=== PATIENT | male | born 2000 | race African-American/Black ===

== ENCOUNTER 2021-02-16 14:08 | Emergency (ER) | payer OTHER, SELFPAY ==
[2021-02-16] MEDS ORDERED: LIDOCAINE 1% 20 ML MDV ONE (14:51)
[2021-02-16] MEDS ORDERED: BUPIVACAINE 0.5% PF 10 ML VIAL ONE (14:55)
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
[2021-02-16 15:54] VITALS: BP 129/86; O2SAT 100
[2021-02-16 15:55] VITALS: TEMP 97.7
== END 2021-02-16 15:41 | disposition home or self-care (01) ==
LOC: ER 14:08
DX: S00.431A Contusion of right ear, initial encounter (principal)
CPT/HCPCS: 99283

== ENCOUNTER 2021-02-26 08:55 | Emergency (ER) | payer OTHER ==
--- NOTE | 2021-02-26 09:11 | EDPHYS ---
Physician Documentation [facility] Name: Familia Kent Age: 20 yrs Sex: Male : 2000 Arrival Date: 02/26/2021 Time: 08:59 Bed 6 Private MD: ED Physician Josr Valentin HPI: 02/26 09:14 This 20 yrs old Black Male presents to ER via Ambulatory with complaints of Ear kb swelling. 09:14 The patient presents with swelling. The complaints affect the right ear. Onset: The kb symptoms/episode began/occurred 2 week(s) ago. Modifying factors: The symptoms are alleviated by nothing, the symptoms are aggravated by pressure. Associated signs and symptoms: The patient has no apparent associated signs or symptoms. Severity of symptoms: At their worst the symptoms were moderate in the emergency department the symptoms are unchanged. The patient has not experienced similar symptoms in the past. The patient has not recently seen a physician. Pt reports swelling to right ear that started 2 weeks ago. States he came here when it first started and it was drained, but it filled back up after a day. States it was full of blood. Came back today to get it drained again. Denies pain. States it is uncomfortable when he rolls onto it while sleeping. . Historical: - Allergies: 09:10 No Known Allergies; ch5 - Immunization history:: Adult Immunizations unknown, . - Social history:: Smoking status: Patient denies any tobacco usage or history of. ROS: 09:13 Constitutional: Negative for fever, chills, and weight loss. kb 09:13 ENT: Positive for swelling to right ear. 09:13 All other systems are negative. Exam: 09:13 Constitutional: This is a well developed, well nourished patient who is awake, alert, kb and in no acute distress. Head/Face: Normocephalic, atraumatic. Respiratory: Respirations even and unlabored. No increased work of breathing, no retractions or nasal flaring. Skin: Warm, dry with normal turgor. Normal color. MS/ Extremity: Pulses equal, no cyanosis. Neurovascular intact. Full, normal range of motion. Neuro: Awake and alert, GCS 15, oriented to person, place, time, and situation. Moves all extremities. Normal gait. Psych: Awake, alert, with orientation to person, place and time. Behavior, mood, and affect are within normal limits. 09:13 ENT: External ear(s): swelling, that is moderate, on the pinna of right ear, TM's: are normal. Vital Signs: 09:08 BP 119 / 65; Pulse 53; Resp 18; Temp 98; Pulse Ox 100% ; Weight 76.66 kg; Height 5 ft. ch5 11 in. (180.34 cm); 09:08 Body Mass Index 23.57 (76.66 kg, 180.34 cm) ch5 MDM: 09:02 Patient medically screened. kb 09:13 Data reviewed: vital signs, nurses notes. Data interpreted: Pulse oximetry: on room air kb is 100 %. Interpretation: normal. Counseling: I had a detailed discussion with the patient and/or guardian regarding: the historical points, exam findings, and any diagnostic results supporting the discharge/admit diagnosis, the need for outpatient follow up, an ENT specialist, to return to the emergency department if symptoms worsen or persist or if there are any questions or concerns that arise at home. ED course: Discussed case with Dr Valentin. Recommends follow up with ENT.. Administered Medications: No medications were administered Disposition: 02/27 08:25 Co-signature as Attending Physician, Josr Valentin MD I agree with the assessment and rn plan of care. Attestation: The patient's history, exam findings, diagnostics, and a summary of any interventions or procedures was reviewed in detail with Analy BUSH. Disposition Summary: 02/26/21 09:10 Discharge Ordered Location: Home kb Condition: Stable kb Diagnosis - Right Ear Hematoma kb Followup: kb - With: Emergency Department - When: As needed - Reason: Worsening of condition Followup: kb - With: Elinor Barajas MD - When: 1 - 2 days - Reason: Recheck today's complaints Discharge Instructions: - Discharge Summary Sheet kb - Hematoma, [id number] kb Forms: - Medication Reconciliation Form kb - Thank You Letter kb - Antibiotic Education kb - Prescription Opioid Use kb - Work release form 5 Signatures: Analy Aguirre FNP-C FNP-Ckb Nieto, Roman, MD MD rn Heath, Christopher, RN RN 5
--- NOTE | 2021-02-26 09:11 | ER ---
Nurse's Notes [facility] Name: Familia Kent Age: 20 yrs Sex: Male : 2000 Arrival Date: 02/26/2021 Time: 08:59 Bed 6 Private MD: Diagnosis: Right Ear Hematoma Presentation: 02/26 09:08 Chief complaint: Patient states: Swelling in right ear. had it drained before but never ch5 followed up with Dr Barajas. Coronavirus screen: Vaccine status: Patient reports receiving the 2nd dose of the covid vaccine. Ebola Screen: Patient negative for fever greater than or equal to 101.5 degrees Fahrenheit, and additional compatible Ebola Virus Disease symptoms Patient denies exposure to infectious person. Patient denies travel to an Ebola-affected area in the 21 days before illness onset. Initial Sepsis Screen: Does the patient meet any 2 criteria? No. Patient's initial sepsis screen is negative. Does the patient have a suspected source of infection? No. Patient's initial sepsis screen is negative. Risk Assessment: Do you want to hurt yourself or someone else? Patient reports no desire to harm self or others. Onset of symptoms is unknown. 09:08 Method Of Arrival: Ambulatory 5 09:08 Acuity: YAS 4 ch5 Triage Assessment: 09:10 General: Appears in no apparent distress. Behavior is calm, cooperative. ch5 Historical: - Allergies: 09:10 No Known Allergies; ch5 - Immunization history:: Adult Immunizations unknown, . - Social history:: Smoking status: Patient denies any tobacco usage or history of. Screenin:10 Abuse screen: Denies threats or abuse. Denies injuries from another. Nutritional 5 screening: No deficits noted. Tuberculosis screening: No symptoms or risk factors identified. Fall Risk None identified. Assessment: 09:10 Reassessment: No changes from previously documented assessment. Patient is alert, ch5 oriented x 3, equal unlabored respirations, skin warm/dry/pink. Pain: Complains of pain in pinna of right ear. EENT:. Vital Signs: 09:08 BP 119 / 65; Pulse 53; Resp 18; Temp 98; Pulse Ox 100% ; Weight 76.66 kg; Height 5 ft. ch5 11 in. (180.34 cm); 09:08 Body Mass Index 23.57 (76.66 kg, 180.34 cm) ch5 ED Course: 08:59 Patient arrived in ED. mr 09:02 Analy Aguirre [facility]-C [facility] kb 09:02 Josr Valentin MD is Attending Physician. kb 09:02 Nicholas Adhikari, RN is Primary Nurse. ch5 09:10 Triage completed. ch5 09:10 Elinor Barajas MD is Referral Physician. kb 09:10 Arm band placed on right wrist. ch5 09:10 Patient has correct armband on for positive identification. Placed in gown. Bed in low ch5 position. 09:10 No provider procedures requiring assistance completed. Patient did not have IV access ch5 during this emergency room visit. Administered Medications: No medications were administered Outcome: 09:10 Discharge ordered by . kb 09:17 Discharged to home ambulatory, with friend. ch5 09:17 Condition: unchanged 09:17 Discharge instructions given to patient. 09:17 Patient left the ED. 5 Signatures: Analy Aguirre FNP-C FNP-Joelle Vyas mr Nicholas Adhikari, RN RN [facility]
[2021-02-26 09:22] VITALS: BP 119/65; TEMP 98; O2SAT 100
== END 2021-02-26 09:17 | disposition home or self-care (01) ==
LOC: ER 08:55
DX: S00.431A Contusion of right ear, initial encounter (principal)
CPT/HCPCS: 99281

== ENCOUNTER 2021-04-10 17:49 | Emergency (ER) | payer OTHER ==
[2021-04-10] MEDS ORDERED: NA CHLORIDE 0.9% 1,000 ML ONE (18:18)
[2021-04-10 18:42] LABS: Absolute Lymphocytes (CBC) 0.9 K/uL (0.7-4.9); Basophils % 0.5 % (0-1.3); Hematocrit 44.2 % (39.6-49.0); Lymphocytes % 14.4 % (15.3-44.8); MPV 9.3 fL (7.6-11.3); RBC Red Blood Cell Count 5.29 M/uL (4.33-5.43)
--- NOTE | 2021-04-10 18:42 | RAD REPORT ---
EXAM DESCRIPTION: CT - Head Brain Wo Cont - 04/10/2021 6:33 pm CLINICAL HISTORY: SYNCOPE COMPARISON: HEAD BRAIN W O CONTRAST dated 12/17/2008 TECHNIQUE: Axial 5 mm thick images of the head were obtained without IV contrast. All CT scans are performed using dose optimization technique as appropriate and may include automated exposure control or mA/KV adjustment according to patient size. FINDINGS: No intracranial hemorrhage, mass, edema or shift of mid-line structures. No acute infarcti on changes seen. No abnormal extra-axial fluid collections. Ventricles are normal. Mastoid air cells and visualized portions of the paranasal sinuses are clear. No acute bony findings. IMPRESSION: Negative non-contrast CT head examination.
[2021-04-10 18:47] LABS: Protime INR 1.29
[2021-04-10 19:19] LABS: Albumin 3.8 g/dL (3.4-5.0); Bilirubin Direct 0.2 mg/dL (0-0.2); Bilirubin Total 0.7 mg/dL (0.2-1.0); Potassium 3.5 mmol/L (3.5-5.1); Protein, Total 7.5 g/dL (6.4-8.2)
[2021-04-10 19:59] LABS: Barbiturates NEGATIVE (NEGATIVE); Benzodiazepines NEGATIVE (NEGATIVE); Cocaine NEGATIVE (NEGATIVE); METHAMPHETAM NEGATIVE (NEGATIVE); Methadone NEGATIVE (NEGATIVE); Opiates NEGATIVE (NEGATIVE); Phencyclidine NEGATIVE (NEGATIVE); THC Cannibis NEGATIVE (NEGATIVE)
[2021-04-10 20:57] LABS: Blood Morphology Comment NOT SEEN (NOT SEEN); Platelet Estimate ADEQ; White Blood Cell Scan OK (OK)
--- NOTE | 2021-04-10 22:22 | ER ---
Nurse's Notes [facility] Name: Familia Kent Age: 20 yrs Sex: Male : 2000 Arrival Date: 04/10/2021 Time: 17:53 Bed 7 Private MD: Diagnosis: Syncope Presentation: 04/10 17:53 Chief complaint: EMS states: "the pt's co-workers called for the patient possibly jd3 having a panic attack. on our arrival the pt was curled up and partially unresponsive and was drooling. after coaching his breathing and the pt calmed down the pt was more responsive and is now reporting a headache and generalized pain all over. 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 Coronavirus screen: At this time, the client does not indicate any symptoms associated with coronavirus-19. Ebola Screen: Patient negative for fever greater than or equal to 101.5 degrees Fahrenheit, and additional compatible Ebola Virus Disease symptoms. Initial Sepsis Screen: Does the patient meet any 2 criteria? No. Patient's initial sepsis screen is negative. Does the patient have a suspected source of infection? No. Patient's initial sepsis screen is negative. Risk Assessment: Do you want to hurt yourself or someone else? Patient reports no desire to harm self or others. Onset of symptoms was April 10, 2021. 17:53 Method Of Arrival: EMS: [facility] j 17:53 Acuity: YAS 3 jd3 Historical: - Allergies: 17:58 No Known Allergies; jd3 - Home Meds: 17:58 None [Active]; jd3 - PMHx: 17:58 ADHD; jd3 - PSHx: 17:58 None; jd3 - Immunization history:: Adult Immunizations up to date, Client reports having NOT received the Covid vaccine. Flu vaccine status is unknown. - Social history:: Smoking status: Reported history of juuling and/or vaping. Patient uses street drugs, marijuana. Screenin:00 Abuse screen: Denies threats or abuse. Nutritional screening: No deficits noted. jd3 Tuberculosis screening: No symptoms or risk factors identified. Fall Risk Ambulatory Aid- None/Bed Rest/Nurse Assist (0 pts). Gait- Normal/Bed Rest/Wheelchair (0 pts) Mental Status- Oriented to own ability (0 pts). Total Lehman Fall Scale indicates No Risk (0-24 pts). Assessment: 17:59 General: Appears uncomfortable, Behavior is cooperative, appropriate for age, anxious. jd3 Pain: Complains of pain in generalized pain and headache. Neuro: Level of Consciousness is awake, alert, obeys commands, Oriented to person, place, time, situation. Cardiovascular: Capillary refill < 3 seconds Patient's skin is warm and dry. Rhythm is regular. Respiratory: Airway is patent Respiratory effort is even, unlabored, Respiratory pattern is regular, symmetrical, Denies cough, shortness of breath. GI: Abdomen is flat, non-distended, Reports nausea. : No signs and/or symptoms were reported regarding the genitourinary system. EENT: No signs and/or symptoms were reported regarding the EENT system. Derm: Skin is intact, Skin is dry, Skin is normal, Skin temperature is warm. Musculoskeletal: Circulation, motion, and sensation intact. Range of motion: intact in all extremities. 19:17 General: Reports " I am still having a little bit of a headache, and my chest still tw5 hurts" Patient states that he has been trying to waft a gas smell towards him to identity if at work " I must have done it wrong, because the smell was too strong, it was after that I got really nauseas and dizzy" The patient states he doesn't recall much of the events after telling a coworker he wasn't feeling good. 19:17 EENT: Throat patient is able to swallow secretions without difficulty.. tw5 20:59 General: Behavior is anxious, patient sitting up at the bedside "when can I go, I have tw5 been here forever." It was explained to the patient that labs take time, and it is best if we continue to watch him considering he doesn't remember the events. . Vital Signs: 17:58 BP 127 / 84; Pulse 95; Resp 21 S; Temp 98.7(O); Pulse Ox 100% on R/A; Weight 60.78 kg jd3 (R); Height 6 ft. 0 in. (182.88 cm) (R); Pain 10/10; 18:50 BP 130 / 83; Pulse 76; Resp 17; Pulse Ox 96% on R/A; tw2 19:17 BP 116 / 76; Pulse 72; Resp 22; Pulse Ox 100% on R/A; Pain 7/10; tw5 20:40 BP 121 / 76; Pulse 85; Resp 19 S; Pulse Ox 100% on R/A; as6 22:24 BP 116 / 78; Pulse 71; Resp 20 S; Pulse Ox 100% on R/A; as6 17:58 Body Mass Index 18.17 (60.78 kg, 182.88 cm) jd3 ED Course: 17:53 Patient arrived in ED. jd3 17:55 Florence Paige MD is Attending Physician. sp3 17:57 Triage completed. jd3 17:59 Arm band placed on. jd3 18:00 Patient has correct armband on for positive identification. Bed in low position. Call jd3 light in reach. Side rails up X2. Adult w/ patient. school lunch monitor on. Pulse ox on. NIBP on. 18:04 Hugh Wheat RN is Primary Nurse. jd3 18:30 Inserted saline lock: 20 gauge in left Blood collected. jd3 18:32 CT Head Brain wo Cont In Process Unspecified. EDMS 19:14 ETOH Level Sent. tw5 19:14 Hepatic Function Sent. tw5 19:14 Urine Drug Screen Sent. tw5 19:14 Basic Metabolic Panel Sent. tw5 19:53 Primary Nurse role handed off by Hugh Wheat, OBI cs9 20:40 Donny Healy, OBI is Primary Nurse. as6 22:19 Attending Physician role handed off by Florence Paige MD rn 22:19 Josr Valentin MD is Attending Physician. rn 22:33 No provider procedures requiring assistance completed. IV discontinued, intact, as6 bleeding controlled, No redness/swelling at site. Pressure dressing applied. Administered Medications: 18:35 Drug: NS 0.9% 1000 ml Route: IV; Rate: 1 bolus; Site: left antecubital; jd3 19:30 Follow up: Response: No adverse reaction; IV Status: Completed infusion; IV Intake: as6 1000ml Intake: 19:30 IV: 1000ml; Total: 1000ml. as6 Outcome: 22:21 Discharge ordered by . rn 22:33 Discharged to home ambulatory. as6 22:33 Condition: stable 22:33 Discharge instructions given to patient, Instructed on discharge instructions, follow up and referral plans. Demonstrated understanding of instructions, follow-up care. 22:33 Patient left the ED. as6 Signatures: Dispatcher [employer] EDJosr Pack MD MD rn Wise, Tara, RN RN tw2 Hugh Wheat RN RN jd3 Florence Paige MD MD 3 Gloria Machado tw5 Diane Ayon 9 Donny Healy RN RN as6
--- NOTE | 2021-04-10 22:23 | EDPHYS ---
Physician Documentation [facility] Name: Familia Kent Age: 20 yrs Sex: Male : 2000 Arrival Date: 04/10/2021 Time: 17:53 Bed 7 Private MD: ED Physician Josr Valentin HPI: 04/10 18:09 This 20 yrs old Black Male presents to ER via EMS with complaints of Syncope and heat sp3 exhaustion. 18:09 20-year-old male with history of ADHD and no other medical problems presents to the ED sp3 for chief complaint syncope, heat exhaustion, possible "panic attack" as witnessed by his coworkers and communicated to EMS just prior to arrival. 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 Yesterday after cleaning a tank he was "feeling woozy" and today after cleaning similar tanks and feeling fatigued he got out and allegedly passed out and had mild shaking activity. It cannot be delineated by EMS from staff there was seizure activity versus anxiety. Currently patient complains of headache, generalized body aches, and fatigue. Patient does state he has been taking p.o. intake and urinating. He denies any dark urine that is bloody or dark brown in color. Patient has never had rhabdomyolysis in the past. Patient currently denies neck pain, chest pain, shortness of breath, back pain, fever, known URI symptoms, known COVID-19 contacts, rash, abdominal pain, nausea, vomiting, diarrhea, extremity pain, any other symptoms as a part of ROS at this time.. Historical: - Allergies: 17:58 No Known Allergies; jd3 - Home Meds: 17:58 None [Active]; jd3 - PMHx: 17:58 ADHD; jd3 - PSHx: 17:58 None; jd3 - Immunization history:: Adult Immunizations up to date, Client reports having NOT received the Covid vaccine. Flu vaccine status is unknown. - Social history:: Smoking status: Reported history of juuling and/or vaping. Patient uses street drugs, marijuana. ROS: 18:12 Constitutional: Negative for fever, chills, and weight loss, Eyes: Negative for injury, sp3 pain, redness, and discharge, ENT: Negative for injury, pain, and discharge, Neck: Negative for injury, pain, and swelling, Cardiovascular: Negative for chest pain, palpitations, and edema, Respiratory: Negative for shortness of breath, cough, wheezing, and pleuritic chest pain, Abdomen/GI: Negative for abdominal pain, nausea, vomiting, diarrhea, and constipation, Back: Negative for injury and pain, MS/Extremity: Negative for injury and deformity, Skin: Negative for injury, rash, and discoloration. 18:12 Neuro: Positive for headache, syncope. Exam: 18:12 Constitutional: This is a well developed, well nourished patient who is awake, alert, sp3 and in no acute distress. Head/Face: Normocephalic, atraumatic. Eyes: Pupils equal round and reactive to light, extra-ocular motions intact. Lids and lashes normal. Conjunctiva and sclera are non-icteric and not injected. Cornea within normal limits. Periorbital areas with no swelling, redness, or edema. ENT: Nares patent. No nasal discharge, no septal abnormalities noted. External auditory canals are clear. Oropharynx with no redness, swelling, or masses, exudates, or evidence of obstruction, uvula midline. Mucous membranes moist. Neck: Trachea midline, no thyromegaly or masses palpated, and no cervical lymphadenopathy. Supple, full range of motion without nuchal rigidity, or vertebral point tenderness. No Meningismus. Chest/axilla: Normal chest wall appearance and motion. Nontender with no deformity. No lesions are appreciated. Cardiovascular: Regular rate and rhythm with a normal S1 and S2. No gallops, murmurs, or rubs. Normal PMI, no JVD. No pulse deficits. Respiratory: Lungs have equal breath sounds bilaterally, clear to auscultation and percussion. No rales, rhonchi or wheezes noted. No increased work of breathing, no retractions or nasal flaring. Abdomen/GI: Soft, non-tender, with normal bowel sounds. No distension or tympany. No guarding or rebound. No evidence of tenderness throughout. Back: No spinal tenderness. No costovertebral tenderness. Full range of motion. Skin: Warm, dry with normal turgor. Normal color with no rashes, no lesions, and no evidence of cellulitis. MS/ Extremity: Pulses equal, no cyanosis. Neurovascular intact. Full, normal range of motion. Neuro: Awake and alert, GCS 15, oriented to person, place, time, and situation. Cranial nerves II-XII grossly intact. Motor strength 5/5 in all extremities. Sensory grossly intact. Cerebellar exam normal. Normal gait. Psych: Awake, alert, with orientation to person, place and time. Behavior, mood, and affect are within normal limits. 18:23 ECG was reviewed by the Attending Physician. Sinus rhythm at 91 bpm with normal sp3 intervals, normal QRS, normal axis, normal ST/T-segment without any evidence of ischemia. Vital Signs: 17:58 BP 127 / 84; Pulse 95; Resp 21 S; Temp 98.7(O); Pulse Ox 100% on R/A; Weight 60.78 kg jd3 (R); Height 6 ft. 0 in. (182.88 cm) (R); Pain 10/10; 18:50 BP 130 / 83; Pulse 76; Resp 17; Pulse Ox 96% on R/A; tw2 19:17 BP 116 / 76; Pulse 72; Resp 22; Pulse Ox 100% on R/A; Pain 7/10; tw5 20:40 BP 121 / 76; Pulse 85; Resp 19 S; Pulse Ox 100% on R/A; as6 22:24 BP 116 / 78; Pulse 71; Resp 20 S; Pulse Ox 100% on R/A; as6 17:58 Body Mass Index 18.17 (60.78 kg, 182.88 cm) jd3 MDM: 18:04 Patient medically screened. sp3 18:12 Data reviewed: vital signs, nurses notes, EMS record. ED course: 20-year-old male who sp3 presents with syncope after being exposed to glycol and working likely with lower p.o. intake leading to secondary losses. Differential diagnosis includes heat exhaustion versus seizure versus syncope versus metabolic derangement versus other process. Will start work-up with general blood work, CT scan of the head, chest x-ray, observation, EKG, and IV fluids. Given proximity to change of shift, patient will be signed out to nighttime ER physician for ultimate disposition.. 22:19 ED course: Patient signed out to me by Dr. Paige, plan was to DC home if all tests were rn normal and after observation. Patient young, no medical problems, no abnormalities in blood/EKG/imaging. Back to baseline. Will DC home with return precautions. 04/10 18:05 Order name: Basic Metabolic Panel 3 04/10 18:05 Order name: CBC with Diff; Complete Time: 22:17 3 04/10 18:05 Order name: ETOH Level; Complete Time: 22:17 sp3 04/10 18:05 Order name: Hepatic Function; Complete Time: 22:17 3 04/10 18:05 Order name: PT-INR; Complete Time: 22:17 3 04/10 18:05 Order name: Ptt, Activated; Complete Time: 22:17 sp3 04/10 18:05 Order name: Urine Drug Screen; Complete Time: 22:17 3 04/10 18:05 Order name: EKG; Complete Time: 18:06 3 04/10 18:05 Order name: EKG - Nurse/Tech; Complete Time: 18:18 3 04/10 18:05 Order name: IV Saline Lock; Complete Time: 18:40 3 04/10 18:05 Order name: CT Head Brain wo Cont; Complete Time: 22:17 3 04/10 18:06 Order name: Basic Metabolic Panel; Complete Time: 22:17 [facility] 04/10 20:57 Order name: CBC Smear Scan; Complete Time: 22:17 EDMS 04/10 18:05 Order name: Labs collected and sent; Complete Time: 18:40 3 04/10 18:05 Order name: Urine Dipstick-Ancillary (obtain specimen); Complete Time: 19:20 sp3 Administered Medications: 18:35 Drug: NS 0.9% 1000 ml Route: IV; Rate: 1 bolus; Site: left antecubital; jd3 19:30 Follow up: Response: No adverse reaction; IV Status: Completed infusion; IV Intake: as6 1000ml Disposition Summary: 04/10/21 22:21 Discharge Ordered Location: Home rn Problem: new rn Symptoms: have improved rn Condition: Stable rn Diagnosis - Syncope rn Followup: rn - With: Private Physician - When: As needed - Reason: Recheck today's complaints, Re-evaluation by your physician Discharge Instructions: - Discharge Summary Sheet rn - Syncope rn Forms: - Medication Reconciliation Form rn - Thank You Letter rn - 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 Differential diagnosis includes heat exhaustion versus seizure versus syncope versus metabolic derangement versus other process. Will start work-up with general blood work, CT scan of the head, chest x-ray, observation, EKG, and IV fluids.. sp3
[2021-04-10 23:24] VITALS: TEMP 98.7
[2021-04-10 23:27] VITALS: O2SAT 100
[2021-04-10 23:30] VITALS: BP 116/78
[2021-04-17 10:52] LABS: Urine Blood Negative (Negative); Urine Glucose Negative (Negative); Urine Protein Negative (Negative); Urine Specific Gravity 1.015 (1.005-1.030); Urine pH 6.5 (5.0-7.0)
== END 2021-04-10 22:33 | disposition home or self-care (01) ==
LOC: ER 17:49
DX: R55 Syncope and collapse (principal)
CPT/HCPCS: 93005; 85025; 80048; 36415; 80320; 85610; 80076; 85730; 81003; 80307; 70450; 96360; 99284; J7030

== ENCOUNTER 2021-06-06 09:28 | Emergency (ER) | payer OTHER ==
[2021-06-06 10:20] LABS: Absolute Lymphocytes (CBC) 1.6 K/uL (0.7-4.9); Hematocrit 45.6 % (39.6-49.0); RBC Red Blood Cell Count 5.43 M/uL (4.33-5.43)
[2021-06-06] MEDS ORDERED: ONDANSETRON 4 MG/2 ML VIAL ONE (10:31)
[2021-06-06] MEDS ORDERED: NA CHLORIDE 0.9% 1,000 ML ONE (10:31)
[2021-06-06] MEDS ORDERED: FAMOTIDINE 20 MG/2 ML VIAL IV ONE (10:32)
[2021-06-06 10:35] LABS: ALT/SGPT 29 U/L (12-78); AST/SGOT 22 U/L (15-37); Albumin 3.4 g/dL (3.4-5.0); Alkaline Phosphatase 106 U/L (45-117); BUN Blood Urea Nitrogen 14 mg/dL (7-18); Bicarbonate 29 mmol/L (21-32); Bilirubin Direct 0.2 mg/dL (0-0.2); Bilirubin Total 0.7 mg/dL (0.2-1.0); Glucose Level 93 mg/dL (74-106); Lipase 98 U/L (73-393); Potassium 3.9 mmol/L (3.5-5.1); Protein, Total 7.1 g/dL (6.4-8.2); Sodium Level 139 mmol/L (136-145)
--- NOTE | 2021-06-06 12:13 | RAD REPORT ---
EXAM DESCRIPTION: CTAbdomen Pelvis W Contrast - 06/06/2021 12:00 pm CLINICAL HISTORY: ABD PAIN COMPARISON: No comparisons TECHNIQUE: CT of the abdomen and pelvis was performed. All CT scans are performed using dose optimization technique as appropriate and may include automated exposure control or mA/KV adjustment according to patient size. FINDINGS: Lower chest: No acute abnormality. Liver: No acute abnormality or suspicious lesions. Biliary: No biliary ductal dilatation. Stomach: No significant focal abnormality. Duodenum: No significant focal abnormality. Pancreas: No significant abnormality. Spleen: No significant abnormality. Adrenal: No suspicious lesions. Kidney/ureter: No hydronephrosis. No renal calculi. Retroperitoneum: No retroperitoneal adenopathy. Vascular: No aneurysm. Bowel: No significant focal abnormality. Normal appendix. Peritoneum: No ascites or free air. Bladder: Grossly unremarkable. Reproductive: No adnexal masses. Bones: No acute fracture. Other: n/a IMPRESSION: No acute intra-abdominal or pelvic finding.
--- NOTE | 2021-06-06 12:29 | ER ---
Nurse's Notes [facility] Name: Familia Kent Age: 20 yrs Sex: Male : 2000 Arrival Date: 06/06/2021 Time: 09:31 Bed 18 Private MD: Diagnosis: Abdominal pain, Generalized;Upper abdominal pain, unspecified Presentation: 06/06 09:44 Chief complaint: Patient states: Intermittent, aching epigastric pain x 2 days, reports jl7 indigestion with vomiting if I eat anything. Coronavirus screen: Vaccine status: Patient reports being unvaccinated. At this time, the client does not indicate any symptoms associated with coronavirus-19. Ebola Screen: No symptoms or risks identified at this time. Initial Sepsis Screen: Does the patient meet any 2 criteria? No. Patient's initial sepsis screen is negative. Does the patient have a suspected source of infection? No. Patient's initial sepsis screen is negative. Risk Assessment: Do you want to hurt yourself or someone else? Patient reports no desire to harm self or others. Onset of symptoms was June 04, 2020. Care prior to arrival: None. 09:44 Method Of Arrival: Ambulatory 7 09:44 Acuity: YAS 3 jl7 Triage Assessment: 09:46 General: Appears in no apparent distress. uncomfortable, Behavior is calm, cooperative, jl7 appropriate for age. Pain: Complains of pain in epigastric area Pain currently is 10 out of 10 on a pain scale. GI: Reports epigastric pain. Historical: - Allergies: 09:46 No Known Allergies; jl7 - Home Meds: 09:46 None [Active]; jl7 - PMHx: 09:46 adhd; jl7 - PSHx: 09:46 None; jl7 - Immunization history:: Adult Immunizations not up to date. - Social history:: Smoking status: Patient denies any tobacco usage or history of. Patient uses street drugs, marijuana. Screenin:11 Abuse screen: Denies threats or abuse. Denies injuries from another. Nutritional mendoza screening: No deficits noted. Tuberculosis screening: No symptoms or risk factors identified. Fall Risk None identified. Assessment: 10:11 General: Appears in no apparent distress. Behavior is calm, cooperative. Pain: mendoza Complains of pain in epigastric area. Vital Signs: 09:44 BP 130 / 78; Pulse 70; Resp 17; Temp 98.1; Pulse Ox 100% ; Weight 62.14 kg; Height 6 jl7 ft. 0 in. (182.88 cm); Pain 10/10; 09:44 Body Mass Index 18.58 (62.14 kg, 182.88 cm) jl7 ED Course: 09:31 Patient arrived in ED. as 09:36 Sushil Miramontes MD is Attending Physician. kdr 09:46 Triage completed. jl7 09:46 Arm band placed on right wrist. jl7 10:04 Basic Metabolic Panel Sent. mendoza 10:04 CBC with Diff Sent. mendoza 10:04 Hepatic Function Sent. mendoza 10:04 Lipase Sent. mendoza 10:11 Fall risk band placed. Bed in low position. mendoza 10:11 No provider procedures requiring assistance completed. Inserted saline lock: 20 gauge mendoza antecubital area, using aseptic technique. 12:00 CT Abd/Pelvis - IV Contrast Only In Process Unspecified. EDMS 12:39 IV discontinued, intact, Pressure dressing applied. mendoza Administered Medications: 10:34 Drug: Pepcid (famotidine) 20 mg Route: IVP; Site: left antecubital; mendoza 10:34 Follow up: Response: No adverse reaction mendoza 10:34 Drug: Zofran (Ondansetron) 4 mg Route: IVP; Site: left antecubital; mendoza 10:34 Follow up: Response: No adverse reaction mendoza 10:34 Drug: NS 0.9% 1000 ml Route: IV; Rate: 1 bolus; Site: left antecubital; mendoza Outcome: 12:28 Discharge ordered by . kdr 12:39 Discharged to home mendoza 12:39 Condition: good 12:39 Discharge instructions given to patient. 12:39 Patient left the ED. mendoza Signatures: Dispatcher [employer] EDMS Sushil Miramontes MD MD kdr Martinez, Amelia as Leal, Jahala, RN RN jl7 Bonnie Torres RN RN mendoza
--- NOTE | 2021-06-06 12:29 | EDPHYS ---
Physician Documentation [facility] Name: Familia Kent Age: 20 yrs Sex: Male : 2000 Arrival Date: 06/06/2021 Time: 09:31 Bed 18 Private MD: ED Physician Sushil Miramontes HPI: 06/06 11:14 This 20 yrs old Black Male presents to ER via Ambulatory with complaints of Epigastric kdr Pain, Nausea, Decreased Appetite. 11:14 The patient presents to the emergency department with nausea, that is mild, vomiting, kdr that is intermittent, abdominal pain, of the epigastric area, described as achy, burning, dull, vague,\E\ and does not radiate. Onset: The symptoms/episode began/occurred suddenly, 2 day(s) ago. Possible causes: unknown. The symptoms are aggravated by food , The symptoms are alleviated by nothing. Associated signs and symptoms: The patient has no apparent associated signs or symptoms. Severity of symptoms: At their worst the symptoms were mild in the emergency department the symptoms are unchanged. The patient has not experienced similar symptoms in the past. The patient has not recently seen a physician. Historical: - Allergies: 09:46 No Known Allergies; jl7 - Home Meds: 09:46 None [Active]; jl7 - PMHx: 09:46 adhd; jl7 - PSHx: 09:46 None; jl7 - Immunization history:: Adult Immunizations not up to date. - Social history:: Smoking status: Patient denies any tobacco usage or history of. Patient uses street drugs, marijuana. ROS: 11:14 Constitutional: Negative for fever, chills, and weight loss, Eyes: Negative for injury, kdr pain, redness, and discharge, ENT: Negative for injury, pain, and discharge, Neck: Negative for injury, pain, and swelling, Cardiovascular: Negative for chest pain, palpitations, and edema, Respiratory: Negative for shortness of breath, cough, wheezing, and pleuritic chest pain, Back: Negative for injury and pain, : Negative for injury, bleeding, discharge, and swelling, MS/Extremity: Negative for injury and deformity, Skin: Negative for injury, rash, and discoloration, Neuro: Negative for headache, weakness, numbness, tingling, and seizure activity. Psych: Negative for depression, anxiety, suicide ideation, homicidal ideation, and hallucinations, Allergy/Immunology: Negative for hives, rash, and allergies, Endocrine: Negative for neck swelling, polydipsia, polyuria, polyphagia, and marked weight changes, Hematologic/Lymphatic: Negative for swollen nodes, abnormal bleeding, and unusual bruising. 11:14 Abdomen/GI: Positive for abdominal pain, nausea, Negative for vomiting, diarrhea, constipation, abdominal cramps, abdominal distension, anorexia, dysphagia, hematemesis, black/tarry stool, rectal pain, rectal bleeding, bowel incontinence, flatulence. Exam: 11:14 Constitutional: This is a well developed, well nourished patient who is awake, alert, kdr and in no acute distress. Head/Face: Normocephalic, atraumatic. Eyes: Pupils equal round and reactive to light, extra-ocular motions intact. Lids and lashes normal. Conjunctiva and sclera are non-icteric and not injected. Cornea within normal limits. Periorbital areas with no swelling, redness, or edema. Neck: Trachea midline, no thyromegaly or masses palpated, and no cervical lymphadenopathy. Supple, full range of motion without nuchal rigidity, or vertebral point tenderness. No Meningismus. Chest/axilla: Normal chest wall appearance and motion. Nontender with no deformity. No lesions are appreciated. Cardiovascular: Regular rate and rhythm with a normal S1 and S2. No gallops, murmurs, or rubs. Normal PMI, no JVD. No pulse deficits. Respiratory: Lungs have equal breath sounds bilaterally, clear to auscultation and percussion. No rales, rhonchi or wheezes noted. No increased work of breathing, no retractions or nasal flaring. Back: No spinal tenderness. No costovertebral tenderness. Full range of motion. Skin: Warm, dry with normal turgor. Normal color with no rashes, no lesions, and no evidence of cellulitis. MS/ Extremity: Pulses equal, no cyanosis. Neurovascular intact. Full, normal range of motion. Neuro: Awake and alert, GCS 15, oriented to person, place, time, and situation. Cranial nerves II-XII grossly intact. Motor strength 5/5 in all extremities. Sensory grossly intact. Cerebellar exam normal. Normal gait. Psych: Awake, alert, with orientation to person, place and time. Behavior, mood, and affect are within normal limits. 11:14 Abdomen/GI: Inspection: abdomen appears normal, Bowel sounds: active, all quadrants, Palpation: soft, mild abdominal tenderness, in the epigastric area. Vital Signs: 09:44 BP 130 / 78; Pulse 70; Resp 17; Temp 98.1; Pulse Ox 100% ; Weight 62.14 kg; Height 6 jl7 ft. 0 in. (182.88 cm); Pain 10/10; 09:44 Body Mass Index 18.58 (62.14 kg, 182.88 cm) jl7 MDM: 11:14 Data reviewed: vital signs, nurses notes, lab test result(s), radiologic studies. kdr Counseling: I had a detailed discussion with the patient and/or guardian regarding: the historical points, exam findings, and any diagnostic results supporting the discharge/admit diagnosis, lab results, radiology results. 12:28 Patient medically screened. kdr 06/06 09:51 Order name: Basic Metabolic Panel; Complete Time: 11:30 kdr 06/06 09:51 Order name: CBC with Diff; Complete Time: 11:30 kdr 06/06 09:51 Order name: Hepatic Function; Complete Time: 11:30 kdr 06/06 09:51 Order name: Lipase; Complete Time: 11:30 kdr 06/06 11:45 Order name: CT Abd/Pelvis - IV Contrast Only; Complete Time: 12:28 kdr 06/06 09:51 Order name: IV Saline Lock; Complete Time: 10:04 kdr 06/06 09:51 Order name: Labs collected and sent; Complete Time: 10:04 kdr Administered Medications: 10:34 Drug: Pepcid (famotidine) 20 mg Route: IVP; Site: left antecubital; mendoza 10:34 Follow up: Response: No adverse reaction mendoza 10:34 Drug: Zofran (Ondansetron) 4 mg Route: IVP; Site: left antecubital; mendoza 10:34 Follow up: Response: No adverse reaction mendoza 10:34 Drug: NS 0.9% 1000 ml Route: IV; Rate: 1 bolus; Site: left antecubital; mendoza Disposition Summary: 06/06/21 12:28 Discharge Ordered Location: Home kdr Problem: new kdr Symptoms: have improved kdr Condition: Stable kdr Diagnosis - Abdominal pain, Generalized kdr - Upper abdominal pain, unspecified kdr Followup: kdr - With: Private Physician - When: 2 - 3 days - Reason: If symptoms return, Further diagnostic work-up, Recheck today's complaints, Continuance of care, Re-evaluation by your physician Discharge Instructions: - Discharge Summary Sheet kdr - Abdominal Pain, Adult kdr - Nausea and Vomiting, Adult, [id number] kdr Forms: - Medication Reconciliation Form kdr - Thank You Letter kdr Prescriptions: - Zofran 4 mg Oral Tablet - take 1 tablet by ORAL route every 4-6 hours As needed; 12 tablet; Refills: 0, kdr Product Selection Permitted - Pepcid 20 mg Oral Tablet - take 1 tablet by ORAL route once daily; 20 tablet; Refills: 0, Product kdr Selection Permitted Signatures: Dispatcher [employer] Sushil Mcgregor MD MD kdr Leal, Jahala, RN RN jl7 Mai-Bonnie Linares RN RN mendoza
[2021-06-06 12:45] VITALS: BP 130/78; TEMP 98.1; O2SAT 100
== END 2021-06-06 12:39 | disposition home or self-care (01) ==
LOC: ER 09:28
DX: R10.13 Epigastric pain (principal); R10.84 Generalized abdominal pain
CPT/HCPCS: 85025; 80048; 36415; 80076; 83690; 74177; 96375; 96374; 99284; Q9967; J7030; J2405

== ENCOUNTER 2021-06-13 14:16 | Emergency (ER) | payer OTHER ==
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
[2021-06-13 19:23] VITALS: BP 133/62; TEMP 98.9; O2SAT 98
== END 2021-06-13 19:19 | disposition left against medical advice (07) ==
LOC: ER 14:16
DX: Z53.21 Procedure and treatment not carried out due to patient leaving prior to being seen by health care provider (principal)
CPT/HCPCS: 99281

== ENCOUNTER 2023-09-29 14:15 | Emergency (ER) | payer OTHER, SELFPAY ==
--- OUTSIDE RECORDS SUMMARY | 2023-09-29 14:18 | XMS REPORT | Continuity of Care Document ---
Author Name Unknown Address [address] [place] [address] [facility]connect Address 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 [id number] 2019 00:00:00 Allergies, Adverse Reactions, Alerts Allergy Name Allergy Type Status Severity Reaction(s) Onset Date Inactive Date Treating Clinician Comments Source NO KNOWN ALLERGIE S Drug Class Active [facility] Encounters Start Date/Time End Date/Time Encounter Type Admission Type Attending Clinicians Care Facility Care Department Encounter ID Source 2019-05-19 15:59:26 2019-05-19 16:20:00 Emergency X CASSI BLACK [facility] ERT [id number] [facility]
[2023-09-29] MEDS ORDERED: NA CHLORIDE 0.9% 1,000 ML ONE (15:12)
[2023-09-29] MEDS ORDERED: ONDANSETRON 4 MG/2 ML VIAL ONE (15:12)
[2023-09-29 15:23] LABS: Absolute Basophils 0.1 K/uL (0-0.5); Absolute Eosinophils 0.1 K/uL (0-0.5); Absolute Lymphocytes (CBC) 1.6 K/uL (0.7-4.9); Absolute Monocytes 0.5 K/uL (0.1-1.3); Hemoglobin 14.8 g/dL (13.6-17.9); Lymphocytes % 25.1 % (15.3-44.8); MCH 27.9 pg (27.0-35.0); MCHC 32.2 g/dL (32.0-36.0); MCV 86.9 fL (80-100); MPV 9.7 fL (7.6-11.3); Neutrophils % 63.9 % (41.7-73.7); Platelets 277 thou/uL (152-406); Red Cell Distribution Width 13.8 % (12.1-15.2)
[2023-09-29 15:40] LABS: Albumin 3.7 g/dL (3.4-5.0); Albumin/Globulin Ratio 1.1 (1.1-1.8); Anion Gap 4.7 mEq/L (5.0-15.0); Bilirubin Total 0.4 mg/dL (0.2-1.0); Globulin 3.4 g/dL (2.3-3.5); Potassium 3.7 mEq/L (3.5-5.1); Protein, Total 7.1 g/dL (6.4-8.2)
--- NOTE | 2023-09-29 16:39 | RAD REPORT ---
EXAM DESCRIPTION: CT - Abdomen Pelvis W Contrast - 09/29/2023 4:10 pm CLINICAL HISTORY: Abdominal pain COMPARISON: 2021 TECHNIQUE: Computed axial tomography of the abdomen pelvis was obtained. 100 cc Isovue-300 was admin istered intravenously. Oral contrast was not requested which limits evaluation of bowel and appendix All CT scans are performed using dose optimization technique as appropriate and may include automated exposure control or mA/KV adjustment according to patient size. FINDINGS: The liver, spleen, pancreas, adrenal and kidneys appear unremarkable. There is no evidence of diverticulitis. Normal appendix The wall of a loop of jejunum is thickened within the anterior abdomen near midline IMPRESSION: The wall of a loop of jejunum is thickened within the anterior abdomen near midline. Thi s may indicate inflammation
--- NOTE | 2023-09-29 17:14 | EDPHYS ---
Physician Documentation [facility] Name: Familia Kent Age: 22 yrs Sex: Male : 2000 Arrival Date: 09/29/2023 Time: 14:15 Bed 13 Private MD: ED Physician Florence Paige HPI: 09/28 14:45 This 22 yrs old Black Male presents to ER via Ambulatory with complaints of Vomiting. sb4 14:45 The patient presents to the emergency department with vomiting. Onset: The sb4 symptoms/episode began/occurred 1 week(s) ago. Possible causes: sick contacts. The symptoms are aggravated by food , The symptoms are alleviated by OTC meds. Associated signs and symptoms: The patient has no apparent associated signs or symptoms. The patient has not experienced similar symptoms in the past. patient states he had a stomach bug last week n/v/d, abd pain but the vomiting has persisted. he has been taking an unknown OTC medication which has helped the abd pain but states he vomits every time he eats. Historical: - PMHx: 14:35 None; db - Immunization history:: Adult Immunizations unknown. - Infectious Disease History:: Denies. - Social history:: Smoking status: Patient reports the use of cigarette tobacco products, denies chronic smoking, but will smoke occasionally. ROS: 14:45 Constitutional: Negative for fever, chills, and weight loss, sb4 14:45 Abdomen/GI: Positive for vomiting, 14:45 All other systems are negative, Exam: 14:45 Constitutional: This is a well developed, well nourished patient who is awake, alert, sb4 and in no acute distress. Head/Face: Normocephalic, atraumatic. Eyes: Extra-ocular motions intact. Periorbital areas with no swelling, redness, or edema. ENT: Mucous membranes moist. Cardiovascular: Regular rate and rhythm with a normal S1 and S2. Respiratory: Lungs have equal breath sounds bilaterally, clear to auscultation and percussion. No rales, rhonchi or wheezes noted. No increased work of breathing, no retractions or nasal flaring. Abdomen/GI: Soft, non-tender, no distension. Skin: Warm, dry with normal turgor. Normal color with no rashes, no lesions, and no evidence of cellulitis. MS/ Extremity: Pulses equal, no cyanosis. Neurovascular intact. Full, normal range of motion. Vital Signs: 14:31 BP 117 / 59; Pulse 67; Resp 18; Temp 99.3; Pulse Ox 100% ; Weight 61.23 kg; Height 5 db ft. 11 in. ; 16:46 BP 113 / 67 RA Standing (auto/reg); Pulse 52 MON; Resp 15 S; Temp 97.3; Pulse Ox 100% jg11 on R/A; 14:31 Body Mass Index 18.83 (61.23 kg, 180.34 cm) db MDM: 14:31 Patient medically screened. sb4 17:13 Data reviewed: vital signs, nurses notes, lab test result(s), radiologic studies, and sb4 as a result, I will discharge patient. Counseling: I had a detailed discussion with the patient and/or guardian regarding the historical points, exam findings, and any diagnostic results supporting the discharge/admit diagnosis, lab results, radiology results, to return to the emergency department if symptoms worsen or persist or if there are any questions or concerns that arise at home. 09/28 14:39 Order name: CBC with Diff; Complete Time: 15:28 sb4 09/28 14:39 Order name: CMP; Complete Time: 15:40 sb4 09/28 14:39 Order name: Lipase; Complete Time: 15:40 sb4 09/28 14:39 Order name: CT Abd/Pelvis - IV Contrast Only; Complete Time: 16:51 sb4 09/28 16:52 Order name: US Abdomen Limited; Complete Time: 17:44 sb4 09/28 14:39 Order name: IV Saline Lock; Complete Time: 15:20 sb4 09/28 14:39 Order name: Labs collected and sent; Complete Time: 15:20 sb4 09/28 16:46 Order name: PO challenge; Complete Time: 16:53 sb4 Administered Medications: 15:20 Drug: NS 0.9% IV 1000 ml IV at 1 bolus Per protocol; 1000 mL bolus Route: IV; Rate: 1 rs5 bolus; Site: left antecubital; 15:20 Drug: Ondansetron IVP 4 mg IVP once; over 2 minutes Route: IVP; Site: left antecubital; rs5 Disposition Summary: 09/29/23 17:13 Discharge Ordered Notes: Location: Home sb4 Problem: new sb4 Symptoms: have improved sb4 Condition: Stable sb4 Diagnosis - Other viral enteritis sb4 Followup: sb4 - With: Emergency Department - When: As needed - Reason: Trouble breathing, Worsening of condition Discharge Instructions: - Discharge Summary Sheet sb4 - Viral Gastroenteritis, Adult, [id number] sb4 Forms: - Work release form sb4 - Patient Portal Instructions sb4 - Leadership Thank You Letter sb4 Prescriptions: - Zofran 4 mg Oral Tablet - take 1 tablet ORAL route every 12 hours As needed; 20 tablet; Refills: 0, sb4 Product Selection Permitted Signatures: Dispatcher [employer] Latha Hook RN RN Tracy Baca PA-C PAIda sb4 Louie Wilcox RN RN rs5 Corrections: (The following items were deleted from the chart) 14:34 14:34 PMHx: adhd; db db
--- NOTE | 2023-09-29 17:14 | ER ---
Nurse's Notes [facility] Name: Familia Kent Age: 22 yrs Sex: Male : 2000 Arrival Date: 09/29/2023 Time: 14:15 Bed 13 Private MD: Diagnosis: Other viral enteritis Presentation: 09/28 14:31 Chief complaint: Patient states: ABD PAIN WITH VOMTIING SINCE LAST WEDNESDAY. STATES db VOMITING WAS WORSE ON WEDNESDAY. Coronavirus screen: Client denies travel out of the [place] in the last 14 days. At this time, the client does not indicate any symptoms associated with coronavirus-19. Ebola Screen: Patient negative for fever greater than or equal to 101.5 degrees Fahrenheit, and additional compatible Ebola Virus Disease symptoms Patient denies exposure to infectious person. Patient denies travel to an Ebola-affected area in the 21 days before illness onset. No symptoms or risks identified at this time. Initial Sepsis Screen: Does the patient meet any 2 criteria? No. Patient's initial sepsis screen is negative. Does the patient have a suspected source of infection? No. Patient's initial sepsis screen is negative. Risk Assessment: Do you want to hurt yourself or someone else? Patient reports no desire to harm self or others. Onset of symptoms. 14:31 Method Of Arrival: Ambulatory db 14:31 Acuity: YAS 3 db 14:34 Onset of symptoms was September 21, 2023. db Triage Assessment: 14:35 General: Appears in no apparent distress. comfortable, Behavior is calm, cooperative. db Pain: Complains of pain in abdomen. Neuro: Level of Consciousness is awake, alert, obeys commands, Oriented to person, place, time, situation. GI: Abdomen is flat, Reports lower abdominal pain, upper abdominal pain, nausea, vomiting. Historical: - PMHx: 14:35 None; db - Immunization history:: Adult Immunizations unknown. - Infectious Disease History:: Denies. - Social history:: Smoking status: Patient reports the use of cigarette tobacco products, denies chronic smoking, but will smoke occasionally. Screenin:58 [facility] ED Fall Risk Assessment (Adult) History of falling in the last 3 months, kc6 including since admission No falls in past 3 months (0 pts) Confusion or Disorientation No (0 pts) Intoxicated or Sedated No (0 pts) Impaired Gait No (0 pts) Mobility Assist Device Used No (0 pt) Altered Elimination No (0 pt) Score/Fall Risk Level 0 - 2 = Low Risk. Abuse screen: Denies threats or abuse. Denies injuries from another. Nutritional screening: No deficits noted. Tuberculosis screening: No symptoms or risk factors identified. Assessment: 16:58 General: Appears in no apparent distress. comfortable, Behavior is calm, cooperative, kc6 appropriate for age. Pain: Complains of pain in abdomen. Neuro: Level of Consciousness is awake, alert, obeys commands, Oriented to person, place, time, situation, Appropriate for age. Cardiovascular: Capillary refill < 3 seconds. Respiratory: Airway is patent Trachea midline Respiratory effort is even, unlabored, Respiratory pattern is regular, symmetrical. GI: Abdomen is flat, non-distended, Bowel sounds present X 4 quads. Reports nausea, vomiting, Patient currently denies diarrhea. : No signs and/or symptoms were reported regarding the genitourinary system. EENT: No signs and/or symptoms were reported regarding the EENT system. Derm: No signs and/or symptoms reported regarding the dermatologic system. Skin is intact, is healthy with good turgor, Skin is pink, warm \T\ dry. Musculoskeletal: No signs and/or symptoms reported regarding the musculoskeletal system. Circulation, motion, and sensation intact. Capillary refill < 3 seconds, Range of motion: intact in all extremities. Vital Signs: 14:31 BP 117 / 59; Pulse 67; Resp 18; Temp 99.3; Pulse Ox 100% ; Weight 61.23 kg; Height 5 db ft. 11 in. ; 16:46 BP 113 / 67 RA Standing (auto/reg); Pulse 52 MON; Resp 15 S; Temp 97.3; Pulse Ox 100% jg11 on R/A; 14:31 Body Mass Index 18.83 (61.23 kg, 180.34 cm) db ED Course: 14:17 Patient arrived in ED. im 14:17 Tracy Berrios PA-C is PHCP. sb4 14:17 Florence Paige MD is Attending Physician. sb4 14:34 Triage completed. db 14:35 Arm band placed on Patient placed in waiting room. db 15:19 Initial lab(s) drawn, by me, sent to lab. Inserted saline lock: 20 gauge in left aw1 antecubital area, using aseptic technique. Blood collected. 15:20 CBC with Diff Sent. aw1 15:20 CMP Sent. aw1 15:20 Lipase Sent. aw1 16:12 CT Abd/Pelvis - IV Contrast Only In Process Unspecified. EDMS 16:38 Deidra Vaughan, RN is Primary Nurse. kc6 16:58 Patient has correct armband on for positive identification. Bed in low position. Call kc6 light in reach. Side rails up X 1. Adult w/ patient. Client placed on continuous cardiac and pulse oximetry monitoring. NIBP monitoring applied. Diet: Patient given water. 17:15 US Abdomen Limited In Process Unspecified. EDMS 17:48 No provider procedures requiring assistance completed. IV discontinued, intact, kc6 bleeding controlled, No redness/swelling at site. Pressure dressing applied. Administered Medications: 15:20 Drug: NS 0.9% IV 1000 ml IV at 1 bolus Per protocol; 1000 mL bolus Route: IV; Rate: 1 rs5 bolus; Site: left antecubital; 15:20 Drug: Ondansetron IVP 4 mg IVP once; over 2 minutes Route: IVP; Site: left antecubital; rs5 Medication: 17:48 VIS not applicable for this client. kc6 Outcome: 17:13 Discharge ordered by . sb4 17:48 Discharged to home ambulatory, with significant other, kc6 17:48 Condition: good 17:48 Discharge instructions given to patient, Instructed on discharge instructions, follow up and referral plans. medication usage, Demonstrated understanding of instructions, follow-up care, medications, Prescriptions given X 1, 17:48 Patient left the ED. kc6 Signatures: Dispatcher [employer] EDMS Deidra Vaughan, RN RN kc6 Latha Montiel RN RN db Brown, Sophia, PA-C PA-C sb4 Louie Wilcox RN RN rs5 Pricilla Julina Alyssa aw1 Bryan Wahl jg11 Corrections: (The following items were deleted from the chart) 14:34 14:34 PMHx: adhd; tyrel sarah
--- NOTE | 2023-09-29 17:42 | RAD REPORT ---
EXAM DESCRIPTION: US - Abdomen Exam Limited - 09/29/2023 5:14 pm CLINICAL HISTORY: Abdominal pain. COMPARISON: September 29, 2023 CT FINDINGS: The gallbladder is contracted. The gallbladder wall is not thickened. A gallstone is not s een. The biliary tree is normal caliber. IMPRESSION: Contracted gallbladder. Otherwise unremarkable exam
[2023-09-29 18:06] VITALS: O2SAT 100
[2023-09-29 18:23] VITALS: BP 113/67; TEMP 97.3
== END 2023-09-29 17:48 | disposition home or self-care (01) ==
LOC: ER 14:15
DX: A08.39 Other viral enteritis (principal); F17.210 Nicotine dependence, cigarettes, uncomplicated
CPT/HCPCS: 85025; 36415; 83690; 80053; 74177; 76705; 96374; 99284; Q9967; J2405; J7030

== ENCOUNTER 2024-04-03 15:05 | Emergency (ER) | payer OTHER, SELFPAY ==
--- OUTSIDE RECORDS SUMMARY | 2024-04-03 15:07 | XMS REPORT | Continuity of Care Document ---
Author Name Unknown Address [address] [place] [address] [place], [place] [id number] [facility] thconnect Address [address] [facility]. [address] [place] [address] Care Team Providers Care Leach Runner Name Role Phone CASSI BLACK Attending Clinician Unavailab le Payers Payer Name Policy Type Policy Number Effective Date Expirati on Date Source [facility] [id number] 2019 00:00:00 Allergies, Adverse Reactions, Alerts Allergy Name Allergy Type Status Severity Reaction(s) Onset Date Inactive Date Treating Clinician Comments Source NO KNOWN ALLERGIE S Drug Class Active [facility] Encounters Start Date/Time End Date/Time Encounter Type Admission Type Attending Clinicians Care Facility Care Department Encounter ID Source 2019-05-19 15:59:26 2019-05-19 16:20:00 Emergency X CASSI BLACK [facility] ERT [id number] [facility]
[2024-04-03] MEDS ORDERED: ACETAMINOPHEN 500 MG TAB ONE (16:14)
[2024-04-03 16:40] LABS: SARS-CoV-2 Antigen CONTROL BLUE LINE VIS/BG OK; SARS-CoV-2 Antigen Rapid Res Negative (Negative)
--- NOTE | 2024-04-03 16:51 | RAD REPORT ---
EXAMINATION: ONE VIEW CHEST XR CLINICAL INDICATION: Male, 23 years old.,CHEST PAIN TECHNIQUE: Frontal chest projection is submitted. Examination is limited by patient positioning and t echnique. COMPARISON: No prior exam. FINDINGS: The lungs are well inflated and clear. No pneumothorax or sizable effusion. The heart is normal in s ize. Mediastinal contours are unremarkable. IMPRESSION: No acute intrathoracic abnormalities.
--- NOTE | 2024-04-03 19:40 | ER ---
Nurse's Notes [facility] Name: Familia Kent Age: 23 yrs Sex: Male : 2000 Arrival Date: 04/03/2024 Time: 15:05 Bed IW1 Private MD: Diagnosis: Chest pain, unspecified-right sided Presentation: 04/03 16:12 Chief complaint: Patient states: right sided chest pain that began Wednesday. Pt reports aa5 pain is worse "inhaling". Pt denies any cough, congestion, or feeling ill. Coronavirus screen: At this time, the client does not indicate any symptoms associated with coronavirus-19. Ebola Screen: Patient denies travel to an Ebola-affected area in the 21 days before illness onset. Initial Sepsis Screen: Does the patient meet any 2 criteria? HR > 90 bpm. Does the patient have a suspected source of infection? No. Patient's initial sepsis screen is negative. Risk Assessment: Do you want to hurt yourself or someone else? Patient reports no desire to harm self or others. Onset of symptoms was March 2024. 16:12 Method Of Arrival: Ambulatory aa5 16:12 Acuity: YAS 3 aa5 Historical: - Allergies: 16:15 No Known Allergies; aa5 - PMHx: 16:15 None; aa5 - PSHx: 16:15 None; aa5 - Immunization history:: Adult Immunizations unknown. - Infectious Disease History:: Denies. Screenin:18 Abuse screen: Denies threats or abuse. Nutritional screening: No deficits noted. vc1 Tuberculosis screening: No symptoms or risk factors identified. Vital Signs: 16:12 BP 134 / 98; Pulse 98; Resp 14 S; Temp 100.9(O); Pulse Ox 99% on R/A; Weight 61.23 kg aa5 (R); Height 5 ft. 11 in. (R); 16:12 Body Mass Index 18.83 (61.23 kg, 180.34 cm) aa5 ED Course: 15:09 Patient arrived in ED. mg5 15:18 Neel Breen DO is Attending Physician. ms3 15:55 Patient's name was called from ER lobby. No response. aa5 15:58 CXR XRAY In Process Unspecified. EDMS 16:13 Triage completed. aa5 16:22 COVID swab sent to lab. Flu and/or RSV swab sent to lab. aa5 19:39 Derek Paige DO is Referral Physician. ms3 20:19 seen from [facility]. vc1 Administered Medications: 16:19 Drug: Acetaminophen PO 1000 mg PO once Route: PO; aa5 Outcome: 19:39 Discharge ordered by MD. ms3 20:19 Discharged to home ambulatory, vc1 20:19 Condition: good 20:19 Discharge instructions given to patient, Instructed on discharge instructions, follow up and referral plans. medication usage, Demonstrated understanding of instructions, follow-up care, medications, Prescriptions given X 1, 20:19 Patient left the ED. vc1 Signatures: Dispatcher [employer] EDMS Trina Mak RN RN aa5 Neel Breen DO DO ms3 Eloisa Jewell RN RN vc1 Aisha Valdes mg5 Corrections: (The following items were deleted from the chart) 16:15 16:12 Chief complaint: Patient states: right sided chest pain that began Wednesday. Pt aa5 reports pain is worse "inhaling" aa5 16:15 16:12 BP 134 / 98; Pulse 98bpm; Resp 14bpm; Spontaneous; Pulse Ox 99% RA; Temp 98F aa5 Oral; 61.23 kg Reported; Height 5 ft. 11 in. Reported; BMI: 18.8; aa5
--- NOTE | 2024-04-03 19:40 | EDPHYS ---
Physician Documentation [facility] Name: Familia Kent Age: 23 yrs Sex: Male : 2000 Arrival Date: 04/03/2024 Time: 15:05 Bed IW1 Private MD: ED Physician Neel Breen HPI: 04/03 18:24 This 23 yrs old Black Male presents to ER via Ambulatory with complaints of Chest Pain. ms3 18:24 Stefan is a 23-year-old male who presents to the Emergency Department with chest ms3 pain that began on Wednesday, which is three days ago. The pain is localized to the right side of his chest. He reports that the pain improves slightly when he lies on his left side and is exacerbated by having a hard yawn. He denies any cough or feeling generally unwell. Donte reports a fever of 100.9F but does not report any respiratory symptoms. He has no known medical history, allergies, or history of surgeries. He is not taking any medications.. Historical: - Allergies: 16:15 No Known Allergies; aa5 - PMHx: 16:15 None; aa5 - PSHx: 16:15 None; aa5 - Immunization history:: Adult Immunizations unknown. - Infectious Disease History:: Denies. ROS: 18:24 Cardiovascular: Negative for chest pain, and palpitations. ms3 18:24 Abdomen/GI: Negative for abdominal pain, nausea, vomiting, diarrhea, and constipation, MS/Extremity: Negative for injury and deformity, Skin: Negative for injury, rash, and discoloration, 18:24 Constitutional: Positive for chills, 18:24 Respiratory: Positive for cough, Exam: 18:24 Constitutional: This is a well developed, well nourished patient who is awake, alert, ms3 and in no acute distress. Head/Face: Normocephalic, atraumatic. Chest/axilla: Normal chest wall appearance and motion. Nontender with no deformity. Cardiovascular: Regular rate and rhythm with a normal S1 and S2. No gallops, murmurs, or rubs. Normal PMI, no JVD. No pulse deficits. Respiratory: Lungs have equal breath sounds bilaterally, clear to auscultation and percussion. No rales, rhonchi or wheezes noted. No increased work of breathing, no retractions or nasal flaring. Abdomen/GI: Soft, non-tender, with normal bowel sounds. No distension or tympany. No guarding or rebound. No evidence of tenderness throughout. Skin: Warm, dry with normal turgor. Normal color with no rashes, no lesions, and no evidence of cellulitis. Vital Signs: 16:12 BP 134 / 98; Pulse 98; Resp 14 S; Temp 100.9(O); Pulse Ox 99% on R/A; Weight 61.23 kg aa5 (R); Height 5 ft. 11 in. (R); 16:12 Body Mass Index 18.83 (61.23 kg, 180.34 cm) aa5 MDM: 15:55 Medical Screening Exam initiated ms3 18:24 Differential diagnosis: abnormal EKG, Pneumonia vs Flu vs COVID. ms3 19:39 Data reviewed: vital signs, nurses notes, lab test result(s), radiologic studies, plain ms3 films, and as a result, I will discharge patient. I considered the following discharge prescriptions or medication management in the emergency department Medications were administered in the Emergency Department. See MAR. Independent interpretation of the following test(s) in the Emergency Department X-Ray: My interpretation is Chest x-ray images reviewed by me do not reveal pneumonia. Counseling: I had a detailed discussion with the patient and/or guardian regarding the historical points, exam findings, and any diagnostic results supporting the discharge/admit diagnosis, lab results, radiology results, the need for outpatient follow up, to return to the emergency department if symptoms worsen or persist or if there are any questions or concerns that arise at home. Special discussion: I discussed with the patient/guardian in detail that at this point there is no indication for admission to the hospital. It is understood, however, that if the symptoms persist or worsen the patient needs to return immediately for re-evaluation. ED course: Patient left the emergency department prior to results returning. Patient states he had urgent matter at home causing him to leave the emergency department. Discussed chest x-ray, and labs with patient. Patient states his symptoms have improved since leaving the emergency department. Discussed [id number] medications and necessity for follow-up in 2 to 3 days. Patient understands and agrees with plan. All questions were answered. Return precautions discussed include worsening symptoms, or any other concerns.. 04/03 16:20 Order name: Flu; Complete Time: 17:48 aa5 04/03 16:20 Order name: SARS RAPID; Complete Time: 17:49 aa5 04/03 16:20 Order name: SARS RAPID ms3 04/03 16:20 Order name: Flu ms3 04/03 15:29 Order name: CXR XRAY; Complete Time: 17:49 ms3 04/03 15:29 Order name: EKG - Nurse/Tech; Complete Time: 19:21 ms3 Administered Medications: 16:19 Drug: Acetaminophen PO 1000 mg PO once Route: PO; aa5 Disposition Summary: 04/03/24 19:39 Discharge Ordered Notes: Location: Home ms3 Condition: Stable ms3 Diagnosis - Chest pain, unspecified - right sided ms3 Followup: ms3 - With: Derek Paige DO - When: 2 - 3 days - Reason: Recheck today's complaints Discharge Instructions: - Discharge Summary Sheet ms3 - Nonspecific Chest Pain, Adult ms3 Forms: - Medication Reconciliation Form ms3 - Antibiotic Education ms3 - Prescription Opioid Use ms3 - Patient Portal Instructions ms3 - Leadership Thank You Letter ms3 Prescriptions: - Ibuprofen 600 mg Oral Tablet - take 1 tablet ORAL route every 6 hours As needed take with food; 30 tablet; ms3 Refills: 0, Product Selection Permitted Signatures: Dispatcher [employer] Trina Townsend, RN RN aa5 Neel Breen DO DO ms3 Corrections: (The following items were deleted from the chart) 15:29 15:29 Chest Single View+RAD.[email or web address].[email or web address] ordered. JACQUELINE PHILLIPS
[2024-04-03 22:36] VITALS: BP 134/98; TEMP 100.9; O2SAT 99
== END 2024-04-03 20:19 | disposition home or self-care (01) ==
LOC: ER 15:05
DX: R07.9 Chest pain, unspecified (principal); Z11.52 Encounter for screening for COVID-19
CPT/HCPCS: 36415; 71045; 87804; 87811; 99283